=== PATIENT | female | born 1995 | race Caucasian/White ===

== ENCOUNTER 2019-04-14 14:38 | Outpatient (CLI) | payer OTHER ==
--- NOTE | 2019-04-14 16:10 | ULT ---
EXAM: OB ultrasound COMPARISON: None HISTORY: female patient. Evaluate anatomy and cervical length. TECHNIQUE: Multiplanar grayscale and color Doppler transabdominal sonographic images are obtained. FINDINGS: There is a single intrauterine gestation in variable presentation. Cardiac Doppler demonstr ates heart tones with a heart rate of 144 beats per minute. The placenta is located posteriorly without evidence of placenta previa. There is a normal amount of amniotic fluid with an a mniotic fluid index of 13 centimeters. The cervical length based on transabdominal imaging measures 3.1 centimeters. biometry measurements: BPD 4.62 cm -- 20 weeks HC 17.31 cm -- 20 weeks AC 15.66 cm -- 20 weeks 6 days FL 3.21 cm -- 20 weeks The estimated gestational age by ultrasound is 20 weeks 2 days with an IAN on08/30/2019. Gestational ag e by the last menstrual period is 20 weeks 2 days. The estimated weight by ultrasound is 349 g (12 ounces). This represents 50 percentile for feta l weight. A 4 chambered heart is visualized. The cerebellum, visualized portions of the spine, kidneys, u rinary bladder, and cord insertion demonstrate a normal sonographic appearance. The nose and lips are not well delineated on this exam due to positioning. A three-vessel cord is not visualized, but there is flow on either side of the urinary bladder sugges ting a three-vessel cord.. No anomalies are seen. IMPRESSION: 1. Single intrauterine gestation in variable presentation with heart tones documented. Estimate d gestational age by ultrasound is 20 weeks 2 days. 2. Estimated weight is 349 g per densities 12 ounces). 3. Amniotic fluid index is 13 centimeters.
== END 2019-04-14 14:39 | disposition home or self-care (01) ==
LOC: BICULT 14:38
PROVIDERS: ATTEND Nurse Practitioner
DX: Z34.02 Encounter for supervision of normal first pregnancy, second trimester (principal); Z3A.20 20 weeks gestation of pregnancy
CPT/HCPCS: 76805

== ENCOUNTER 2019-08-25 09:21 | Outpatient (CLI) | payer OTHER ==
[2019-08-26 16:07] LABS: SARS-CoV-2 MS2 Positive; SARS-CoV-2 N Gene Negative; SARS-CoV-2 S Gene Negative; SARS-CoV-2 orf1ab Negative
== END 2019-08-25 09:22 | disposition home or self-care (01) ==
LOC: LABBT 09:21
PROVIDERS: ATTEND Family Medicine
DX: Z01.812 Encounter for preprocedural laboratory examination (principal); Z11.59 Encounter for screening for other viral diseases
CPT/HCPCS: 87635; U0003